=== PATIENT | female | born 1950 ===

== ENCOUNTER 2018-01-31 08:33 | Outpatient (CLI) | payer OTHER | END 2018-01-31 09:00 | disposition home or self-care (01) | LOC: MAMO-SONO 08:33 | DX: Z13.820 Encounter for screening for osteoporosis (principal); N60.11 Diffuse cystic mastopathy of right breast; N60.12 Diffuse cystic mastopathy of left breast; Z12.31 Encounter for screening mammogram for malignant neoplasm of breast; F41.8 Other specified anxiety disorders ==